=== PATIENT | female | born 1945 | race Caucasian/White ===

== ENCOUNTER 2021-04-20 12:17 | Emergency (ER) | payer MEDICARE, OTHER ==
[2021-04-20] MEDS: Sodium Chloride 0.9% 10 ML Syringe FLUSH PRN (13:08)
--- NOTE | 2021-04-20 13:09 | EDM.PDOC ---
ED HPI GENERAL MEDICAL PROBLEM - General Chief Complaint: Respiratory Problem Stated Complaint: COVID +/FEVER/COUGH/LOW OXYGEN Time Seen by Provider: 04/20/21 12:31 Source of Information: Reports: Patient History Limitations: Reports: No Limitations - History of Present Illness INITIAL COMMENTS - FREE TEXT/NARRATIVE: 75-year-old female presents the emergency department with complaints of worsening Covid symptoms. Patient states she developed symptoms 8 days ago with high fevers. She states that 6 days ago she presented to the clinic and tested positive for Covid. She states that she has had cough, shortness of breath, fever and upset stomach. She denies vomiting, nausea, or diarrhea. She denies any urinary symptoms. She denies headache or sore throat. She states that sometime yesterday she developed heavy chest pressure and this has been intermittent since. She elected to come to the emergency department this morning. She does not have any history of smoking. She does carry a history of hypertension for which she takes medications. Her primary care provider is Dr. Webb. - Related Data Allergies Allergy/AdvReac Type Severity Reaction Status Date / Time No Known Allergies Allergy Verified 04/20/21 13:01 Past Medical History Cardiovascular History: Reports: Hypertension Endocrine/Metabolic History: Reports: Hypothyroidism - Infectious Disease History Infectious Disease History: Reports: Novel Coronavirus - Past Surgical History GI Surgical History: Reports: Cholecystectomy Social & Family History - Tobacco Use Tobacco Use Status *Q: Never Tobacco User Second Hand Smoke Exposure: No - Recreational Drug Use Recreational Drug Use: No ED ROS GENERAL - Review of Systems Review Of Systems: Comprehensive ROS is negative, except as noted in HPI. ED EXAM, GENERAL - Physical Exam Exam: See Below Exam Limited By: No Limitations General Appearance: Alert, WD/WN, No Apparent Distress Ears: Normal External Exam, Hearing Grossly Normal Nose: Normal Inspection Throat/Mouth: Normal Inspection, Normal Lips, Normal Voice, No Airway Compromise Head: Atraumatic Neck: Normal Inspection, Supple Respiratory/Chest: No Respiratory Distress, Normal Breath Sounds, No Accessory Muscle Use, Chest Non-Tender, Crackles (Right middle and bilateral lower lobes). No: Lungs Clear Cardiovascular: Normal Peripheral Pulses, Regular Rate, Rhythm, No Edema, No Murmur Peripheral Pulses: 2+: Radial (L), Radial (R) GI/Abdominal: Normal Bowel Sounds, Soft, Non-Tender, No Distention (Female) Exam: Deferred Rectal (Female) Exam: Deferred Back Exam: Normal Inspection Extremities: Normal Inspection, Normal Range of Motion, No Pedal Edema Neurological: Alert, Oriented, Normal Cognition Psychiatric: Normal Affect, Normal Mood Skin Exam: Warm, Dry, Intact, Normal Color, No Rash Lymphatic: No Adenopathy #1 Interpretation EKG Date: 04/20/21 Time: 13:16 Rhythm: NSR Rate (Beats/Min): 76 [place]: Normal (76) P-Wave: Present QRS: Normal ST-T: Normal QT: Normal Comparison: NA - No Prior EKG EKG Interpretation Comments: Per Dr. Avalos interpretation; sinus rhythm at 76 bpm Course - Vital Signs Text/Narrative:: As stated above, patient presents with Covid symptoms that are worsening with chest pressure that started sometime yesterday and has been intermittent since. Upon assessment, the patient is awake and alert and does not appear to be in any distress however does have a spontaneous cough when taking a deep breath. O2 saturations are 97 to 98% on room air. Due to the patient complaining of chest discomfort we will do a full cardiac work-up to include CBC, CMP, magnesium, C- reactive protein, troponin and a D-dimer. We will also obtain a portable chest x-ray and an EKG. Patient would be a candidate for Regeneron treatment. Pending that the labs are negative will discuss this with the patient. Last Recorded V/S: Last Vital Signs Temp 97.6 F 04/20/21 12:38 Pulse 76 04/20/21 16:15 Resp 16 04/20/21 16:15 BP 187/80 H 04/20/21 16:15 Pulse Ox 94 L 04/20/21 16:15 - Orders/Labs/Meds Orders: Active Orders 24 hr Category Date Time Status EPINEPHrine [Adrenalin] Med 04/20/21 14:16 Active 0.3 mg IM ONETIME PRN Famotidine [Pepcid] Med 04/20/21 14:16 Active 20 mg IVPUSH ONETIME PRN Sodium Chloride 0.9% [Saline Flush] Med 04/20/21 13:04 Active 10 ml FLUSH ASDIRECTED PRN Sodium Chloride 0.9% [Saline Flush] Med 04/20/21 14:30 Active 30 ml FLUSH ASDIRECTED diphenhydrAMINE [Benadryl] Med 04/20/21 14:16 Active 50 mg IVPUSH ONETIME PRN methylPREDNISolone Sod Succ [Solu-MEDROL] Med 04/20/21 14:16 Active 125 mg IVPUSH ONETIME PRN Saline Lock Insert [OM.PC] Stat Oth 04/20/21 13:04 Ordered Medication Orders Diphenhydramine HCl (Diphenhydramine 50 Mg/Ml Sdv) 50 mg IVPUSH ONETIME PRN PRN Reason: hypersensitivity reaction Epinephrine HCl (Epinephrine 1 Mg/Ml Sdv) 0.3 mg IM ONETIME PRN PRN Reason: hypersensitivity reaction Famotidine (Famotidine 20 Mg/2 Ml Sdv) 20 mg IVPUSH ONETIME PRN PRN Reason: hypersensitivity reaction Methylprednisolone Sodium Succinate (Methylprednisolone Sodium Succinate 125 Mg/2 Ml Sdv) 125 mg IVPUSH ONETIME PRN PRN Reason: hypersensitivity reaction Sodium Chloride (Sodium Chloride 0.9% 10 Ml Syringe) 10 ml FLUSH ASDIRECTED PRN PRN Reason: Keep Vein Open Last Admin: 04/20/21 13:08 Dose: 10 ml Documented by: JOSY Sodium Chloride (Sodium Chloride 0.9% 10 Ml Syringe) 30 ml FLUSH ASDIRECTED [facility] Labs: Laboratory Tests 04/20/21 04/20/21 04/20/21 Range/Units 12:42 12:42 12:42 WBC 4.02 (3.98-10.04) K/mm3 RBC 4.33 (3.98-5.22) M/mm3 Hgb 12.9 (11.2-15.7) gm/dl Hct 38.9 (34.1-44.9) % MCV 89.8 (79.4-94.8) fl MCH 29.8 (25.6-32.2) pg MCHC 33.2 (32.2-35.5) g/dl RDW Std Deviation 44.3 (36.4-46.3) fL Plt Count 201 (182-369) K/mm3 MPV 9.9 (9.4-12.3) fl Neut % (Auto) 67.0 (34.0-71.1) % Lymph % (Auto) 21.1 (19.3-51.7) % [place] % (Auto) 10.2 (4.7-12.5) % Eos % (Auto) 0.2 L (0.7-5.8) Baso % (Auto) 1.0 (0.1-1.2) % Neut # (Auto) 2.69 (1.56-6.13) K/mm3 Lymph # (Auto) 0.85 L (1.18-3.74) K/mm3 [place] # (Auto) 0.41 H (0.24-0.36) K/mm3 Eos # (Auto) 0.01 L (0.04-0.36) K/mm3 Baso # (Auto) 0.04 (0.01-0.08) K/mm3 Manual Slide Review Normal smear D-Dimer, Quantitative 1.40 H (0.19-0.50) mg/L Sodium 142 (136-145) mEq/L Potassium 3.3 L (3.5-5.1) mEq/L Chloride 103 (98-107) mEq/L Carbon Dioxide 27 (21-32) mEq/L Anion Gap 15.3 H (5-15) BUN 14 (7-18) mg/dL Creatinine 1.2 H (0.55-1.02) mg/dL Est Cr Clr Drug Dosing 29.54 mL/min Estimated GFR (MDRD) 44 (>60) mL/min BUN/Creatinine Ratio 11.7 L (14-18) Glucose 133 H (70-99) mg/dL Calcium 8.2 L (8.5-10.1) mg/dL Magnesium 1.8 (1.8-2.4) mg/dL Total Bilirubin 0.3 (0.2-1.0) mg/dL AST 31 (15-37) U/L ALT 24 (14-59) U/L Alkaline Phosphatase 54 (46-116) U/L Troponin I < 0.017 (0.00-0.056) ng/mL C-Reactive Protein 18.2 H* (<1.0) mg/dL Total Protein 7.0 (6.4-8.2) g/dl Albumin 3.0 L (3.4-5.0) g/dl Globulin 4.0 gm/dL Albumin/Globulin Ratio 0.8 L (1-2) Meds: Medications Generic Name Dose Route Start Last Admin Trade Name Freq PRN Reason Stop Dose Admin Diphenhydramine HCl 50 mg 04/20/21 14:16 Diphenhydramine 50 Mg/Ml Sdv IVPUSH ONETIME PRN hypersensitivity reaction Epinephrine HCl 0.3 mg 04/20/21 14:16 Epinephrine 1 Mg/Ml Sdv IM ONETIME PRN hypersensitivity reaction Famotidine 20 mg 04/20/21 14:16 Famotidine 20 Mg/2 Ml Sdv IVPUSH ONETIME PRN hypersensitivity reaction Methylprednisolone Sodium Succinate 125 mg 04/20/21 14:16 Methylprednisolone Sodium Succinate 125 Mg/2 Ml Sdv IVPUSH ONETIME PRN hypersensitivity reaction Sodium Chloride 10 ml 04/20/21 13:04 04/20/21 13:08 Sodium Chloride 0.9% 10 Ml Syringe FLUSH 10 ml ASDIRECTED PRN Administration Keep Vein Open Sodium Chloride 30 ml 04/20/21 14:30 Sodium Chloride 0.9% 10 Ml Syringe FLUSH ASDIRECTED BANDAR Discontinued Medications Generic Name Dose Route Start Last Admin Trade Name Freq PRN Reason Stop Dose Admin CASIRIVIMAB/IMDEVIMAB 10 ml/ 110 mls @ 220 mls/hr 04/20/21 14:45 04/20/21 14:45 Sodium Chloride IV 04/20/21 15:14 220 mls/hr ONETIME ONE Administration Potassium Chloride 40 meq 04/20/21 14:28 04/20/21 14:44 Potassium Chloride 20 Meq Tab.Er PO 04/20/21 14:29 40 meq ONETIME ONE Administration - Re-Assessments/Exams Free Text/Narrative Re-Assessment/Exam: 04/20/21 14:26 Hematology reveals a WBC of 4.02, hemoglobin 12.9, hematocrit 38.9, platelet count 201 Coagulation reveals a D-dimer of 1.40 (likely due to Covid diagnosis, I do not feel the patient needs a CT scan at this time as she has not complained of significant shortness of breath and O2 sats have been in the upper 90s on room air) Chemistry reveals a sodium of 142, potassium 3.3, anion gap 15.3, BUN 14, creatinine 1.2, glucose 133, calcium 8.2, magnesium 1.8, total bilirubin 0.3, AST 31, ALT 24, alk phos 54, troponin less than 0.017, C-reactive protein 18.2 Portable view of the chest reveals a questionable infiltrate noted to the right lower lobe this is likely due to Covid. Formal radiologist report is pending. I spoke with the patient to provide information about Regeneron treatment for herself. I offered her the patient and caregiver [employer] Regeneron fax sheet to read and review. I stated the drug has been approved by an emergency use authorizat ion process and has not been fully FDA approved or reviewed. The patient meets the EUA requirements. I discussed there are other potential treatment options that are currently not FDA approved to treat COVID-19. Offered opportunity to ask questions and all questions were answered. The patient voiced understanding and agreed to proceed with the treatment for herself. 04/20/21 15:36 Radiologist impression portable view of the chest: 1. Patching peripheral densities are seen within the left mid and lower lungs as well as minimal density within the right lower lung. Lungs otherwise are clear. Heart size and mediastinum are within normal limits. Slight scoliosis is noted. Mild degenerative changes scattered within the spine. 04/20/21 16:46 Patient has received Regeneron infusion and has been monitored for an hour post infusion. She will be discharged home. Departure - Departure Time of Disposition: 16:48 Disposition: Home, Self-Care 01 Condition: Good Clinical Impression: COVID-19 - Discharge Information Referrals: PCP,None [Primary Care Provider] - Forms: ED Department Discharge Additional Instructions: You were seen in the emergency department with worsening Covid symptoms. Labs were completed which were essentially unremarkable. Chest x-ray did show mild pneumonia. This is viral in origin and cannot be treated with antibiotics. You did receive monoclonal antibody treatment, Regeneron, which is said to shorten the severity and length of the symptoms. You should start to feel better in the next day or 2. Continue to drink plenty of fluids and take Tylenol 650 mg every 4 hours as needed for body aches or discomfort. Sepsis Event Note (ED) - Evaluation Sepsis Screening Result: No Definite Risk - Focused Exam Vital Signs: Vital Signs Temp Pulse Resp BP Pulse Ox 04/20/21 16:15 76 16 187/80 H 94 L 04/20/21 16:00 74 16 176/74 H 93 L 04/20/21 15:45 76 16 172/77 H 93 L 04/20/21 15:30 75 16 170/76 H 95 04/20/21 15:15 74 18 178/74 H 95 04/20/21 15:00 70 16 177/71 H 95 04/20/21 14:45 83 16 157/76 H 95 04/20/21 14:30 71 16 157/76 H 94 L 04/20/21 14:15 70 18 141/78 H 94 L 04/20/21 12:38 97.6 F 95 16 148/83 H 95 - My Orders Last 24 Hours: My Active Orders 04/20/21 13:04 Sodium Chloride 0.9% [Saline Flush] 10 ml FLUSH ASDIRECTED PRN Saline Lock Insert [OM.PC] Stat 04/20/21 14:16 EPINEPHrine [Adrenalin] 0.3 mg IM ONETIME PRN Famotidine [Pepcid] 20 mg IVPUSH ONETIME PRN diphenhydrAMINE [Benadryl] 50 mg IVPUSH ONETIME PRN methylPREDNISolone Sod Succ [Solu-MEDROL] 125 mg IVPUSH ONETIME PRN 04/20/21 14:30 Sodium Chloride 0.9% [Saline Flush] 30 ml FLUSH ASDIRECTED - Assessment/Plan Last 24 Hours: My Active Orders 04/20/21 13:04 Sodium Chloride 0.9% [Saline Flush] 10 ml FLUSH ASDIRECTED PRN Saline Lock Insert [OM.PC] Stat 04/20/21 14:16 EPINEPHrine [Adrenalin] 0.3 mg IM ONETIME PRN Famotidine [Pepcid] 20 mg IVPUSH ONETIME PRN diphenhydrAMINE [Benadryl] 50 mg IVPUSH ONETIME PRN methylPREDNISolone Sod Succ [Solu-MEDROL] 125 mg IVPUSH ONETIME PRN 04/20/21 14:30 Sodium Chloride 0.9% [Saline Flush] 30 ml FLUSH ASDIRECTED
[2021-04-20] MEDS ORDERED: methylPREDNISolone Sodium Succinate 125 MG/2 ML SDV IVPUSH PRN (14:16)
[2021-04-20] MEDS ORDERED: EPINEPHrine 1 MG/ML SDV IM PRN (14:16)
[2021-04-20] MEDS ORDERED: diphenhydrAMINE 50 MG/ML SDV IVPUSH PRN (14:16)
[2021-04-20] MEDS ORDERED: Famotidine 20 MG/2 ML SDV IVPUSH PRN (14:16)
[2021-04-20] MEDS ORDERED: Sodium Chloride 0.9% 10 ML Syringe FLUSH SCH (14:30)
[2021-04-20] MEDS: Potassium Chloride 20 MEQ Tab.ER PO ONE (14:44)
--- NOTE | 2021-04-20 15:15 | CR ---
Chest: Portable view of the chest was obtained. Comparison: No prior chest imaging is available. Patchy peripheral densities are seen within the left mid and lower lungs as well as minimal density within the right lower lung. Lungs otherwise are clear. Heart size and mediastinum are within normal limits. Slight scoliosis is noted. Mild degenerative change is scattered within the spine. Impression: 1. Findings which are felt compatible with mild Covid pneumonia. 2. Other findings as noted above which are believed to be incidental. Diagnostic code #3
== END 2021-04-20 17:00 | disposition home or self-care (01) ==
LOC: JD.ED 12:17
DX: U07.1 COVID-19 (principal); I10 Essential (primary) hypertension
CPT/HCPCS: 36415; 71045; 80053; 83735; 84484; 85025; 85379; 86140; 93005; 99285; A9270; M0243; Q0243; 93010; 99284

== ENCOUNTER 2025-02-12 06:15 | Day surgery (SDC) | payer MEDICARE, OTHER ==
[~2025-02-12 06:15] MED LIST: Sodium Chloride 0.9% 10 ML Syringe FLUSH PRN; Sodium Chloride 0.9% 10 ML Syringe FLUSH SCH
[2025-02-12] MEDS ORDERED: Propofol 200 MG/20 ML SDV ONE ×2 (06:40→06:45)
[2025-02-12] MEDS ORDERED: Ketamine 200 MG/20 ML MDV ONE (06:41)
[2025-02-12] MEDS ORDERED: dexmedeTOMIDine HCl 200 MCG/2 ML SDV ONE (06:45)
[2025-02-12] MEDS ORDERED: fentaNYL 100 MCG/2 ML SDV ONE (06:50)
[2025-02-12] MEDS: Lactated Ringers 1,000 ML IV SCH (07:10)
[2025-02-12 08:08] LABS: INR 0.98; PROTHROMBIN TIME 10.4 SECONDS (9.7-12.0)
[2025-02-12 08:09] LABS: PTT,PARTIAL THROMBOPLSTIN TIME 23.9 SECONDS (21.7-31.4)
[2025-02-12] MEDS ORDERED: Ketorolac 30 MG/ML SDV ONE (08:29)
[2025-02-12] MEDS ORDERED: Ondansetron 4 MG/2 ML SDV ONE (08:29)
[2025-02-12] MEDS ORDERED: ceFAZolin 2 GM Vial ONE (08:29)
[2025-02-12] MEDS ORDERED: ePHEDrine 50 MG/ML SDV ONE (09:06)
[2025-02-12] MEDS: Morphine 8 MG, EPINEPHrine 0.3 MG, Cefuroxime 750 MG, Ketorolac 30 MG, Sodium Chloride ... PRN (09:07)
[2025-02-12] MEDS: VANCOmycin 1 GM SDV ONE (09:07)
[2025-02-12] MEDS: Tranexamic Acid 1,000 MG/10 ML Vial ONE (09:07)
[2025-02-12] MEDS ORDERED: Acetaminophen/HYDROcodone 325-5 MG Tab PO PRN (09:46)
== END 2025-02-12 13:01 | disposition home or self-care (01) ==
LOC: JD.SDS 06:15
PROVIDERS: ATTEND Orthopaedic Surgery
DX: M16.12 Unilateral primary osteoarthritis, left hip (principal); I10 Essential (primary) hypertension; E03.9 Hypothyroidism, unspecified; Z79.890 Hormone replacement therapy; Z79.899 Other long term (current) drug therapy
CPT/HCPCS: 0055T; 27130; 36415; 73501; 85610; 85730; 97116; 97161; 97530; C1713; C1776; J0171; J0690; J0697; J1885; J2272; J2405; J2704; J3010; J3370; J3490; J7120; 01214

== ENCOUNTER 2025-06-19 06:00 | Day surgery (SDC) | payer MEDICARE, OTHER ==
[~2025-06-19 06:00] MED LIST changes: +Morphine 8 MG, EPINEPHrine 0.3 MG, Cefuroxime 750 MG, Ketorolac 30 MG, Sodium Chloride ... PRN
[2025-06-19] MEDS: Lactated Ringers 1,000 ML IV SCH (06:20)
[2025-06-19] MEDS ORDERED: propofoL 500 MG/50 ML 50 ML ONE (06:21)
[2025-06-19] MEDS ORDERED: dexmedeTOMIDine HCl 200 MCG/2 ML SDV ONE (06:23)
[2025-06-19] MEDS ORDERED: Ondansetron 4 MG/2 ML SDV ONE (06:24)
[2025-06-19] MEDS ORDERED: Ketamine HCL/NACL, ISO-OSM 50 MG/5 ML Syringe ONE (07:29)
[2025-06-19] MEDS ORDERED: fentaNYL 100 MCG/2 ML SDV ONE (07:30)
[2025-06-19] MEDS ORDERED: ePHEDrine 50 MG/ML SDV ONE (07:45)
[2025-06-19] MEDS ORDERED: Ondansetron 4 MG/2 ML SDV IVPUSH PRN (08:41)
[2025-06-19] MEDS ORDERED: Ketorolac 15 MG/ML SDV IVPUSH PRN (08:41)
[2025-06-19] MEDS ORDERED: fentaNYL 100 MCG/2 ML SDV IVPUSH PRN (08:41)
[2025-06-19] MEDS: Acetaminophen/HYDROcodone 325-5 MG Tab PO SCH (11:08)
== END 2025-06-19 12:30 | disposition home or self-care (01) ==
LOC: JD.SDS 06:00
PROVIDERS: ATTEND Orthopaedic Surgery
DX: M16.11 Unilateral primary osteoarthritis, right hip (principal); E03.9 Hypothyroidism, unspecified; I10 Essential (primary) hypertension; Z96.642 Presence of left artificial hip joint; Z79.899 Other long term (current) drug therapy; Z79.890 Hormone replacement therapy
CPT/HCPCS: 0055T; 27130; 73501; 97116; 97161; A9270; J0690; J2003; J2405; J2704; J3010; J3373; J7120; 01214; 99100; C1713; C1776; J3490